=== PATIENT | male | born 1965 | race Caucasian/White ===

== ENCOUNTER 2016-11-26 10:13 | Emergency (ER) | payer MEDICAID ==
[2016-11-26] MEDS ORDERED: ALBUTEROL SULFATE/IPRATROPIUM 3 ML NEBU IH ONE ×2 (10:24→10:37)
[2016-11-26] MEDS ORDERED: BENZONATATE 100 MG CAPSULE PO ONE ×2 (10:24→10:30)
[2016-11-26] MEDS ORDERED: METHYLPREDNISOLONE SOD SUCC/PF 40 MG/ML VIAL IV ONE (10:24)
--- NOTE | 2016-11-26 10:29 | ERNOTE ---
Medical Problem HPI - Narrative Date of Service: 11/26/16 - General Chief Complaint: Flu Symptoms Time Seen by Provider: 11/26/16 10:18 Source: patient Exam Limitations: no limitations - Immun/Allergies/Home Medications Immunizations: IMMUNIZATION HX Immunizations Up to Date Yes History of Influenza Vaccine No Hx Pneumococcal Vaccination No Allergies/Adverse Reactions: Allergies No Known Allergies Allergy (Unverified 11/26/16 10:25) Home Medications: HOME MEDICATIONS Albuterol Sulfate 2.5 mg IH QID #30 vial.neb 11/26/16 [Last Taken Unknown] Albuterol Sulfate [Proair Hfa] 2 puff IH QID PRN 11/26/16 [Last Taken Unknown] Clarithromycin [Biaxin] 500 mg PO BID #28 tablet 11/26/16 [Last Taken Unknown] Nebulizer [Aeroeclipse II] 1 each MC QID #1 each 11/26/16 [Last Taken Unknown] Prednisone [Deltasone] 20 mg PO BID #10 tablet 11/26/16 [Last Taken Unknown] - History of Present History Timing: constant Severity: moderate Review of Systems - Review of Systems Constitutional: Present: See HPI EYE: Present: no symptoms reported ENT: Present: no symptoms reported Respiratory: Present: shortness of breath, cough, wheezing Cardiology: Present: no symptoms reported Gastrointestinal/Abdominal: Present: no symptoms reported Genitourinary: Present: no symptoms reported Musculoskeletal: Present: no symptoms reported Skin: Present: no symptoms reported Neurological: Present: no symptoms reported Endocrine: Present: no symptoms reported Hematologic/Lymphatic: Present: no symptoms reported Psych: Present: no symptoms reported - Patient's Past Medical History Patient History - Medical: Anemia, Other - MRSA, cellulitis, Nicotine addiction Patient History - Cardiac/Respiratory: COPD Patient History - Cancer: No Hx of Cancer Patient History - Surgical Procedures: No surgical history - Social History Living Situations: home Smoking Status: Current every day smoker Have you smoked in the past 12 months: Yes Alcohol Use: rarely Drug Use: none Physical Exam - Physical Exam General Appearance: Present: wd/wn, alert, moderate distress Eye Exam: Normal inspection: bilateral, PERRL: bilateral Ears, Nose, Throat: Present: hearing grossly normal, nasal congestion, pharyngeal erythema Neck: Present: normal inspection, nontender Respiratory: Present: no accessory muscle use, chest nontender, respiratory distress, rales, wheezing Cardiovascular/Chest: Present: regular rate, rhythm, no murmur, normal peripheral pulses Gastrointestinal/Abdominal: Present: normal bowel sounds, nontender, nondistended, soft, no organomegaly Rectal Exam: Present: deferred Back Exam: Present: normal inspection, normal range of motion Extremity Exam: Present: normal inspection, non-tender, no edema, normal range of motion Neurological Exam: Present: alert, oriented, normal mood/affect Skin Exam: Present: normal color, warm/dry Lymphatic Exam: Present: no adenopathy ED Progress - Results and Orders Patient's Lab Results:: I have reviewed the patient's lab results. - Vital Signs Patient's Vital Signs:: I have reviewed the patient's vital signs. Vital Signs: Vital Signs 11/26/16 10:15 Temperature 36.7 C Pulse Rate 84 Respiratory 24 H Rate Blood Pressure 138/89 O2 Sat by Pulse 99 Oximetry - X-Ray X-Ray #1 X-Ray: chest Interpretation: Reviewed by me - Progress/Reassessment Chief Complaint: Flu Symptoms Progress:: Improved Progress Note-Subjective: 11/26/16 11:30 We had a long discussion regarding nicotine addiction and his need to strongly consider stopping. He is somewhat resistant to stopping at this juncture. I will add in 2 weeks of Biaxin, a nebulizer machine with albuterol for home and a short course of Prednisone. He will call for an appointment with his FP for 7- 10 days and will start adding extra salt to his foot to assist in his chronic hyponatremia. Departure - Departure Clinical Impression: Mycoplasma infection, COPD (chronic obstructive pulmonary disease) with acute bronchitis Disposition: Home self-care Condition: Good Instructions: Chronic Obstructive Pulmonary Disease, [id number], Acute Bronchitis, [id number] Prescriptions: Albuterol Sulfate 2.5 mg IH QID #30 vial.neb Clarithromycin [Biaxin] 500 mg PO BID #28 tablet Nebulizer [Aeroeclipse II] 1 each MC QID #1 each Prednisone [Deltasone] 20 mg PO BID #10 tablet
[2016-11-26] MEDS ORDERED: METHYLPREDNISOLONE SOD SUCC/PF 40 MG/ML VIAL ONE (10:30)
[2016-11-26] MEDS ORDERED: ALBUTEROL SULFATE 2.5 MG/0.5 ML VIAL.NEB IH ONE (10:31)
[2016-11-26 10:37] LABS: Hematocrit 29.6 % (42.0-52.0); Hemoglobin 9.7 gm/dL (13.5-18.0); Mean Cell Volume 73.4 fl (78-100); Mean Corpuscular Hemoglobin 24.1 pg (27-31); Mean Corpuscular Hgb Conc 32.8 g/dl (32-36); Mean Platelet Volume 9.2 fl (6.0-9.5); Neutrophil # 4.8 K/mm3 (1.3-6.0); Neutrophil % 74.5 % (42-75.0); Platelet Count 135 K/mm3 (150-450); Red Blood Count 4.03 M/mm3 (4.7-6.0); Red Cell Distribution Width 18.8 % (11.5-14.0); White Blood Count 6.5 K/mm3 (4.0-10.5)
[2016-11-26 10:56] LABS: ALT 36 U/L (19-67); AST 60 U/L (0-48); Albumin * 3.7 gm/dl (3.4-5.0); Alkaline Phosphatase * 97 U/L (50-170); Anion Gap 13.7 mmol/L (6.8-13.8); BUN/Creatinine Ratio 5.2 (9.0-21.6); Bilirubin, Total 0.4 mg/dL (0.0-1.1); Blood Urea Nitrogen 5 mg/dL (6-23); Calcium * 9.1 mg/dL (7.9-10.9); Carbon Dioxide 26.1 mmol/L (24-32.6); Chloride 88 mmol/L (97-106); Glucose * 87 mg/dL (70-110); Magnesium 1.6 mg/dL (1.2-2.8); Potassium 3.8 mmol/L (3.4-4.6); Sodium 124 mmol/L (132-142)
[2016-11-26 10:57] LABS: Troponin I Less than 0.017 ng/ml (0.00-0.10)
[2016-11-26 11:46] VITALS: BP 146/88
== END 2016-11-26 11:59 | disposition home or self-care (01) ==
LOC: ER 10:13
DX: A49.3 Mycoplasma infection, unspecified site (principal); J44.0 Chronic obstructive pulmonary disease with (acute) lower respiratory infection; J20.9 Acute bronchitis, unspecified; F17.210 Nicotine dependence, cigarettes, uncomplicated

== ENCOUNTER 2017-02-11 13:12 | Emergency (ER) | payer MEDICAID ==
--- NOTE | 2017-02-11 13:45 | ERNOTE ---
Lower Extremity HPI - General Lower Extremities Pain: knee: right Time Seen by Provider: 02/11/17 13:23 Source: patient Exam Limitations: no limitations - Immun/Allergies/Home Medications Immunizations: IMMUNIZATION HX Immunizations Up to Date Yes History of Influenza Vaccine Yes Hx Pneumococcal Vaccination No Allergies/Adverse Reactions: Allergies Allergy/AdvReac Type Severity Reaction Status Date / Time No Known Drug Allergies Allergy Verified 02/11/17 13:21 Home Medications: HOME MEDICATIONS Albuterol Sulfate 2.5 mg IH QID #30 vial.neb 11/26/16 [Last Taken Unknown] Albuterol Sulfate [Proair Hfa] 2 puff IH QID PRN 11/26/16 [Last Taken Unknown] Naproxen [Naprosyn] 500 mg PO BID #60 tablet 02/11/17 [Last Taken Unknown] - History of Present Illness Narrative: Patient was crossing the railroad tracks and slipped on the wet railroad track and landed abruptly on his right knee patellar area. Complains of moderate-to- severe pain and swelling, difficult weightbearing and does have some superficial abrasions to the knee as well. Occurred: other - 2 days ago Location of Incident: other - street Method of Injury: Reports: direct blow Reason for Fall: Reports: slipped Loss of Consciousness: Reports: no loss of consciousness Associated Symptoms: Reports: other injuries - painful weight bearing Other Injuries: Reports: none Review of Systems - Review of Systems Constitutional: Present: See HPI EYE: Present: no symptoms reported ENT: Present: no symptoms reported Respiratory: Present: no symptoms reported Cardiology: Present: no symptoms reported Gastrointestinal/Abdominal: Present: no symptoms reported Genitourinary: Present: no symptoms reported Musculoskeletal: Present: joint pain Skin: Present: no symptoms reported Neurological: Present: no symptoms reported Endocrine: Present: no symptoms reported Hematologic/Lymphatic: Present: no symptoms reported Psych: Present: no symptoms reported - Patient's Past Medical History Patient History - Medical: Anemia, No pertinent hx, Other Patient History - Cardiac/Respiratory: Bronchitis, COPD, Hypertension Patient History - Cancer: No Hx of Cancer Patient History - Surgical Procedures: No surgical history, Other Patient History - Other: None - Family History Father Family History - Medical: No pertinent hx Mother Family History - Medical: Diabetes Type 1 Children Family History - Medical: Diabetes Type 1 - Social History Living Situations: alone Abuse History: No History of abuse Psych History: No pertinent hx Smoking Status: Current every day smoker Alcohol Use: occasionally Drug Use: marijuana - Immunizations Immunizations Up to Date: Yes Hx Pneumococcal Vaccination: No History of Influenza Vaccine: Yes Physical Exam - Physical Exam General Appearance: Present: wd/wn, alert, moderate distress Eye Exam: Normal inspection: bilateral, PERRL: bilateral Ears, Nose, Throat: Present: normal ENT inspection, H, normal pharynx Neck: Present: normal inspection, nontender Respiratory: Present: no respiratory distress, normal breath sounds, no accessory muscle use, chest nontender, lungs clear Cardiovascular/Chest: Present: regular rate, rhythm, no murmur, normal peripheral pulses Gastrointestinal/Abdominal: Present: normal bowel sounds, nontender, nondistended, soft, no organomegaly Rectal Exam: Present: deferred Back Exam: Present: normal inspection, normal range of motion Extremity Exam: Present: decreased range of motion, joint swelling, other - difficult testing ROM's secondary to pain and swelling Neurological Exam: Present: alert, oriented, normal mood/affect Skin Exam: Present: normal color, warm/dry, other - abrasions to the right knee Lymphatic Exam: Present: no adenopathy ED Progress - Vital Signs Patient's Vital Signs:: I have reviewed the patient's vital signs. Vital Signs: Vital Signs 02/11/17 02/11/17 13:13 13:17 Temperature 36.8 C 37.6 C H Pulse Rate 102 H Respiratory 16 Rate Blood Pressure 162/93 150/95 O2 Sat by Pulse 100 Oximetry - X-Ray X-Ray #1 X-Ray: knee Interpretation: Reviewed by me - Progress/Reassessment Chief Complaint: Lower Extremity Pain/ Injury Progress:: Unchanged Plan - Plan Plan: I suspect the patient may have a component of internal derangement of his right knee. He was placed in a knee immobilizer. I'm not going to give him crutches as I feel he is already unstable and is more likely to fall with that. He will be referred to the orthopedic office within the next week or so for follow-up. Departure Clinical Impression: Knee sprain Qualifiers: Encounter type: initial encounter Involved ligament of knee: unspecified ligament Laterality: right Qualified Code(s): S83.91XA - Sprain of unspecified site of right knee, initial encounter - Departure Disposition: Home self-care Instructions: Knee Sprain, [id number] Referrals: Jose Bright MD [Staff Physician] - Prescriptions: Naproxen [Naprosyn] 500 mg PO BID #60 tablet
--- OUTSIDE RECORDS SUMMARY | 2017-02-11 14:05 | XMS REPORT | Continuity of Care Document ---
:1965 Author Organization [facility] [place] [address] Care Team Providers Name Role Phone Devora Clarke Primary Care Provider [phone] Source Comments This disclosure is being made pursuant to the [employer] program and maynot contain all information available regarding this patient.[facility] Active Allergies and Adverse Reactions Not on File Current Medications Be aware that medications may not be up to date as of this document. Alwaysverify current medications with the patient. Not on file Active Problems Not on file Social History Tobacco Use Types Packs/Day Years Used Date Current Every Day Smoker Last Filed Vital Signs Vital Sign Reading Time Taken Blood Pressure 160/80 07/23/2013 1:57 PM CDT Pulse 72 07/23/2013 1:57 PM CDT Temperature - - Respiratory Rate - - Height 1.626 m (5' 4") 07/23/2013 1:57 PM CDT Weight 67.132 kg (148 lb) 07/23/2013 1:57 PM CDT Body Mass Index 25.39 07/23/2013 1:57 PM CDT Oxygen Saturation - - Plan of Care Health Maintenance Due Date Last Done Comments Retired-Pertussis Vaccine Adult 1984 Retired-Tetanus Vaccine Adult 1984 Colonoscopy 2014 Well Adult Visit 2014 Retired-INFLUENZA VACCINE 07/15/2015 Results from Last 3 Months Not on file
--- OUTSIDE RECORDS SUMMARY | 2017-02-11 14:05 | XMS REPORT | Continuity of Care Document ---
:1965 Author Organization [facility] ([facility]) Address [address] [place] [address] Phone [phone] Care Team Providers Name Role Phone Linda Camacho Primary Care Provider [phone] Source Comments This disclosure is being made pursuant to the Care Everywhere program, applicable federal and state laws, and may not contain all informaitonavailable regarding this patient.[facility] ([facility]) Active Allergies and Adverse Reactions No Active Allergies Current Medications Not on file Active Problems Not on file Social History Tobacco Use Types Packs/Day Years Used Date Never Assessed Last Filed Vital Signs Vital Sign Reading Time Taken Blood Pressure 129/85 07/17/2006 8:00 AM CDT Pulse 80 07/17/2006 8:00 AM CDT Temperature 36.1 C (96.98 F) 07/14/2006 2:37 AM CDT Respiratory Rate 16 07/14/2006 8:00 AM CDT Height 1.651 m (5' 5") 07/14/2006 2:37 AM CDT Weight 144.398 kg (318 lb 5.4 oz) 07/14/2006 2:37 AM CDT Body Mass Index 52.97 07/14/2006 2:37 AM CDT Oxygen Saturation - - Plan of Care Health Maintenance Due Date Last Done Comments HCV Screening 1965 Hepatitis B Vaccine (1 of 3 - Primary Series) 1965 Tdap Vaccine 1975 Lipid Disorder Screening 1982 MMR Vaccine 1982 Td Vaccine 1982 Colonoscopy 2014 Prostate Cancer Screening 2014 Influenza Vaccine: Seasonal (#1) 06/14/2016 Results from Last 3 Months Not on file
[2017-02-11 14:13] VITALS: BP 165/94
== END 2017-02-11 14:47 | disposition home or self-care (01) ==
LOC: ER 13:12
PROC: 2W3LX1Z Immobilization of Right Lower Extremity using Splint (ICD-10-PCS; principal; 2017-02-11)
DX: S83.91XA Sprain of unspecified site of right knee, initial encounter (principal); F17.210 Nicotine dependence, cigarettes, uncomplicated; W01.198A Fall on same level from slipping, tripping and stumbling with subsequent striking against other object, initial encounter; Y93.01 Activity, walking, marching and hiking; Y92.89 Other specified places as the place of occurrence of the external cause; J44.9 Chronic obstructive pulmonary disease, unspecified